=== PATIENT | male | born 1940 | race Two or more races ===

== ENCOUNTER 2022-12-16 13:27 | Emergency (ER) | payer MEDICARE, OTHER ==
[~2022-12-16] VITALS: Ht 170.2 cm; Wt 68.9 kg
[2022-12-16] MEDS ORDERED: LIDOCAINE 1%-EPI 1:100,000 20 ML VIAL ONE (13:48)
[2022-12-16] MEDS ORDERED: LIDOCAINE 1%-EPI 1:100,000 20 ML VIAL TP ONE (14:00)
[2022-12-16] MEDS ORDERED: TDAP [DIPH/PERTUSSIS/TET] 0.5 ML VIAL IM ONE ×2 (14:00→14:17)
[2022-12-16] MEDS ORDERED: IV NS 0.9% 500 ML BAG IV ONE (14:00)
[2022-12-16 14:33] LABS: BASOPHILS % (AUTO) 0.4 % (0.0-2.0); EOSINOPHILS % (AUTO) 10.9 % (0.0-6.0); HEMATOCRIT 34 % (39-51); HEMOGLOBIN 11.2 g/dL (13.5-17.5); LYMPHOCYTES # (AUTO) 1.1 K/uL (0.8-4.8); MEAN CORPUSCULAR HGB CONC 33 g/dl (31.0-36.0); MEAN CORPUSCULAR VOLUME 86 fL (80-96); MONOCYTES # (AUTO) 0.4 K/uL (0.1-1.30); MONOCYTES % (AUTO) 10.4 % (2.0-12.0); NEUTROPHILS # (AUTO) 2.1 K/uL (1.8-8.9); NEUTROPHILS % (AUTO) 51.3 % (43.0-81.0); PLATELET COUNT (AUTO) 175 K/uL (150-450); RED BLOOD CELL COUNT(AUTO) 3.96 MIL/uL (4.5-6.0); WHITE BLOOD COUNT (AUTO) 4.2 K/uL (4.3-11.0)
[2022-12-16 14:51] LABS: CALCIUM, SERUM 8.8 mg/dL (8.5-10.1); CREATININE 0.9 mg/dL (0.6-1.3); POTASSIUM 4.2 mmol/L (3.5-5.1)
[2022-12-16 14:58] LABS: ALBUMIN 3.1 g/dL (3.4-5.0); BILIRUBIN,DIRECT 0.2 mg/dL (0.0-0.2); BILIRUBIN,TOTAL 0.4 mg/dL (0.2-1.0); TOTAL PROTEIN, SERUM 6.4 g/dL (6.4-8.2)
[2022-12-16] MEDS ORDERED: BACI/NEOM/POLY B OINT PKT 1 UDPKT PACKET ONE (16:08)
--- NOTE | 2022-12-16 16:14 | NUR ---
CLEANED WOUND APPLIED TRIPLE ATB WOUND DRESSING DONE
--- NOTE | 2022-12-16 17:45 | NUR ---
Patient discharged to home in stable condition. Written and verbal after care instructions given. Patient verbalizes understanding of instruction.
[2022-12-16 18:07] VITALS: BP 110/78
== END 2022-12-16 17:45 | disposition home or self-care (01) ==
LOC: ER 14:25
DX: S01.112A Laceration without foreign body of left eyelid and periocular area, initial encounter (principal); R51.9 Headache, unspecified; M54.2 Cervicalgia; Z88.2 Allergy status to sulfonamides; W06.XXXA Fall from bed, initial encounter; Y93.89 Activity, other specified; Y92.89 Other specified places as the place of occurrence of the external cause; Y99.8 Other external cause status
CPT/HCPCS: 99285; 72125; 12015; 90471; 90715; 70450; 85025; 80048; 80076; 36415; 85730; J7040; A6403 ×2; J3490

== ENCOUNTER 2023-06-27 16:26 | Inpatient (IN) | payer MEDICARE, OTHER ==
[~2023-06-27] VITALS: Ht 172.7 cm; Wt 68.0 kg
[2023-06-27] MEDS ORDERED: VANCOMYCIN 1 GM in IV D5W 250 ML IV ONE (18:00)
[2023-06-27] MEDS ORDERED: IV NS 0.9% 1,000 ML BAG IV ONE (18:00)
[2023-06-27] MEDS ORDERED: ACETAMINOPHEN 650 MG/SUPP.RECT RC ONE ×2 (18:00→18:12)
[2023-06-27] MEDS ORDERED: CEFEPIME 1 GM in IV D5W 50 ML IV ONE (18:00)
[2023-06-27] MEDS ORDERED: CEFEPIME 1 GM VIAL ONE (18:11)
[2023-06-27] MEDS ORDERED: VANCOMYCIN 1 GM /D5W 250 ML PB IV ONE (18:12)
[2023-06-27 18:15] LABS: BASOPHILS % (AUTO) 0.3 % (0.0-2.0); EOSINOPHILS % (AUTO) 0.2 % (0.0-6.0); HEMATOCRIT 31 % (39-51); LYMPHOCYTES % (AUTO) 18.5 % (20.0-44.0); MEAN CORPUSCULAR HEMOGLOBIN 30 PG (26.0-33.0); MEAN CORPUSCULAR HGB CONC 33 g/dl (31.0-36.0); MEAN CORPUSCULAR VOLUME 92 fL (80-96); MONOCYTES # (AUTO) 0.4 K/uL (0.1-1.30); MONOCYTES % (AUTO) 7.5 % (2.0-12.0); NEUTROPHILS # (AUTO) 3.9 K/uL (1.8-8.9); NEUTROPHILS % (AUTO) 73.5 % (43.0-81.0); PLATELET COUNT (AUTO) 96 K/uL (150-450); RED BLOOD CELL COUNT(AUTO) 3.33 MIL/uL (4.5-6.0); RED CELL DISTRIBUTION WIDTH 18.1 % (11.5-15.0); WHITE BLOOD COUNT (AUTO) 5.2 K/uL (4.3-11.0)
[2023-06-27] MEDS ORDERED: NIFE60TA73 PO (18:15)
[2023-06-27] MEDS ORDERED: MEMA10TA PO (18:15)
[2023-06-27] MEDS ORDERED: ASPI-1420 PO (18:15)
[2023-06-27] MEDS ORDERED: ATOR80TA PO (18:15)
[2023-06-27] MEDS ORDERED: TRAZ-182 PO (18:15)
[2023-06-27] MEDS ORDERED: QUET25TA PO (18:15)
[2023-06-27] MEDS ORDERED: ALLO100T PO (18:15)
[2023-06-27] MEDS ORDERED: DIVA-78 PO (18:15)
[2023-06-27] MEDS ORDERED: MYRBETRIQ PO (18:15)
[2023-06-27] MEDS ORDERED: FINA5TAB11 PO (18:15)
[2023-06-27] MEDS ORDERED: CHOL200059 PO (18:15)
[2023-06-27] MEDS ORDERED: LINA145C PO (18:15)
[2023-06-27] MEDS ORDERED: CARV25TA2 PO (18:15)
[2023-06-27] MEDS ORDERED: SERT50TA PO (18:15)
[2023-06-27] MEDS ORDERED: HYDR100T27 PO (18:15)
[2023-06-27 18:24] LABS: CALCIUM, SERUM 8.9 mg/dL (8.5-10.1); CARBON DIOXIDE 28 mmol/L (21-32); CHLORIDE 100 mmol/L (98-107); CREATININE 1.6 mg/dL (0.6-1.3); GLUCOSE 98 mg/dL (74-106); POTASSIUM 4.6 mmol/L (3.5-5.1); SODIUM SERUM 134 mmol/L (136-145); UREA NITROGEN, BLOOD 28 mg/dL (7-18)
[2023-06-27 18:27] LABS: INR 1.17 (0.91-1.10); PARTIAL THROMBOPLASTIN TIME 28.8 SEC (24.3-34.3); PROTHROMBIN TIME 12.3 SECS (9.2-11.1)
[2023-06-27 18:30] LABS: ALANINE AMINOTRANSFERASE 17 U/L (12-78); ALBUMIN 2.5 g/dL (3.4-5.0); ALKALINE PHOSPHATASE 90 U/L (46-116); ASPARTATE AMINOTRANSFERASE 25 U/L (15-37); BILIRUBIN,DIRECT 0.2 mg/dL (0.0-0.2); BILIRUBIN,TOTAL 0.7 mg/dL (0.2-1.0); TOTAL PROTEIN, SERUM 6.3 g/dL (6.4-8.2)
[2023-06-27 18:37] LABS: LACTIC ACID 1.9 mmol/L (0.4-2.0)
[2023-06-27 18:42] LABS: BAND % (MANUAL) 2 % (0.0-5.0); LYMPHOCYTES % (MANUAL) 16 % (16-48); MONOCYTES % (MANUAL) 5 % (0-11.0); NEUTROPHILS % (MANUAL) 77 (42-76); PLATELET ESTIMATE DECREASED
[2023-06-27 19:40] LABS: APPEARANCE,URINE CLOUDY (CLEAR); BILIRUBIN,URINE NEGATIVE (NEGATIVE); BLOOD, URINE 1+ Ery/uL (NEGATIVE); COLOR,URINE YELLOW (YELLOW); KETONES,URINE TRACE mg/dL (NEGATIVE); LEUKOCYTE ESTERASE ,URINE 2+ (NEGATIVE); NITRITE, URINE POSITIVE (NEGATIVE); PH,URINE 6.5 (5.0-8.0); PROTEIN,URINE TRACE mg/dl (NEGATIVE); UGLUCOSE NEGATIVE (NEGATIVE); UROBILINOGEN,URINE 0.2 EU/dL (0.2)
[2023-06-27] MEDS ORDERED: ACETAMINOPHEN 650 MG/SUPP.RECT RC PRN (20:00)
[2023-06-27] MEDS ORDERED: Z GUARD REMEDY 4 OZ OINT TP PRN (20:00)
[2023-06-27] MEDS ORDERED: ONDANSETRON HCL/PF 4 MG/2 ML VIAL IVP PRN (20:00)
[2023-06-27 20:11] LABS: ADD URINE CULTURE YES; BACTERIA,URINE 4+ /HPF (None Seen); MUCUS,URINE Few /LPF (None Seen)
[2023-06-27] MEDS ORDERED: LINZESS 145 MCG XX SCH (20:30)
[2023-06-27] MEDS ORDERED: TRAZODONE 50 MG TABLET PO PRN (20:30)
[2023-06-27 21:30] VITALS: BP 134/81; TEMP 99.5; O2SAT 98
[2023-06-27] MEDS: ATORVASTATIN 40 MG TABLET PO SCH (22:01)
[2023-06-27] MEDS: IV D5/0.45 NACL 1,000 ML IV PRN (22:06)
[2023-06-28] VITALS: BP 146/57; TEMP 97.5; O2SAT 96
[2023-06-28 04:00] VITALS: BP 138/60; TEMP 97.7; O2SAT 100
[2023-06-28 07:03] LABS: BASOPHILS % (AUTO) 0.3 % (0.0-2.0); EOSINOPHILS # (AUTO) 0.1 K/uL (0.0-0.7); EOSINOPHILS % (AUTO) 1.1 % (0.0-6.0); HEMATOCRIT 28 % (39-51); HEMOGLOBIN 9.2 g/dL (13.5-17.5); LYMPHOCYTES # (AUTO) 1.1 K/uL (0.8-4.8); LYMPHOCYTES % (AUTO) 20.1 % (20.0-44.0); MEAN CORPUSCULAR HEMOGLOBIN 30 PG (26.0-33.0); MEAN CORPUSCULAR HGB CONC 33 g/dl (31.0-36.0); MEAN CORPUSCULAR VOLUME 92 fL (80-96); MONOCYTES # (AUTO) 0.5 K/uL (0.1-1.30); MONOCYTES % (AUTO) 8.5 % (2.0-12.0); NEUTROPHILS # (AUTO) 3.8 K/uL (1.8-8.9); PLATELET COUNT (AUTO) 82 K/uL (150-450); RED BLOOD CELL COUNT(AUTO) 3.04 MIL/uL (4.5-6.0); WHITE BLOOD COUNT (AUTO) 5.4 K/uL (4.3-11.0)
[2023-06-28 07:18] LABS: CALCIUM, SERUM 8.5 mg/dL (8.5-10.1); MAGNESIUM 2.2 mg/dL (1.8-2.4); PHOSPHORUS 3.1 mg/dL (2.5-4.9); POTASSIUM 4.1 mmol/L (3.5-5.1)
[2023-06-28 07:34] LABS: THYROID STIMULATING HORMONE 1.524 uIU/mL (0.358-3.74)
[2023-06-28 08:00] VITALS: BP 153/59; TEMP 97.3; O2SAT 98
[2023-06-28] MEDS: CARVEDILOL 12.5 MG TABLET PO SCH ×2 (09:00→16:49)
[2023-06-28] MEDS ORDERED: NA PHOS,M-B/NA PHOS,DI-BA 1 EA ENEMA RC PRN (09:00)
[2023-06-28] MEDS ORDERED: ASPIRIN EC 81 MG TABLET.DR PO SCH (09:00)
[2023-06-28] MEDS ORDERED: PANTOPRAZOLE 40 MG VIAL IV SCH (09:00)
[2023-06-28] MEDS: DIVALPROEX SODIUM 500 MG TABLET.DR PO SCH (09:25)
[2023-06-28] MEDS: SERTRALINE HCL 50 MG TABLET PO SCH (09:25)
[2023-06-28] MEDS: ALLOPURINOL 100 MG TABLET PO SCH ×2 (09:25→17:13)
[2023-06-28] MEDS: FINASTERIDE (5 MG) 5 MG TABLET PO SCH (09:25)
[2023-06-28] MEDS: CHOLECALCIFEROL 1,000 UNIT TABLET (VIT D3) PO SCH (09:25)
[2023-06-28] MEDS: MEMANTINE HCL 5 MG TABLET PO SCH (09:25)
[2023-06-28] MEDS: CEFEPIME 1 GM in IV D5W 50 ML IV SCH ×2 (09:25→20:58)
[2023-06-28] MEDS: QUETIAPINE FUMARATE 25 MG TABLET PO SCH (09:25)
[2023-06-28 12:00] VITALS: BP 163/60; TEMP 97.4; O2SAT 99
[2023-06-28] MEDS: VANCOMYCIN 0.75 GM in IV D5W 250 ML IV SCH ×2 (12:24→23:23)
[2023-06-28 13:35] LABS: ANISOCYTOSIS 1+; BASOPHILS % (MANUAL) 0 % (0.0-2.0); EOSINOPHILS % (MANUAL) 6 % (0-4); LYMPHOCYTES % (MANUAL) 18 % (16-48); MONOCYTES % (MANUAL) 5 % (0-11.0); NEUTROPHILS % (MANUAL) 71 (42-76); OVALOCYTES FEW; PLATELET ESTIMATE DECREASED
[2023-06-28] MEDS: IV D5/0.45 NACL 1,000 ML IV PRN (15:07)
[2023-06-28 16:00] VITALS: BP 166/59; TEMP 97.3; O2SAT 99
[2023-06-28] MEDS ORDERED: VANCOMYCIN 1 GM in IV D5W 250ml IV SCH (18:00)
[2023-06-28] MEDS: IV LR 1000 ML 1,000 ML IV PRN (18:16)
[2023-06-28 20:00] VITALS: BP 164/67; TEMP 95; O2SAT 98
[2023-06-28] MEDS ORDERED: HEPARIN SODIUM, PORCINE 5000 UNITS/1 ML VIAL SQ SCH (21:00)
[2023-06-28] MEDS: ATORVASTATIN 40 MG TABLET PO SCH (21:04)
[2023-06-28] MEDS: PANTOPRAZOLE 40 MG VIAL IV SCH (21:04)
[2023-06-28] MEDS: hydrALAZINE HCL IV 20 MG VIAL IV PRN (22:17)
[2023-06-29] VITALS: BP 149/60; TEMP 95; O2SAT 98
[2023-06-29 04:00] VITALS: BP 155/79; TEMP 96.5; O2SAT 100
[2023-06-29 08:00] VITALS: BP 178/67; TEMP 97.3; O2SAT 97
[2023-06-29] MEDS: NIFEdipine XL (30MG) 30 MG TAB PO SCH (09:00)
[2023-06-29] MEDS: QUETIAPINE FUMARATE 25 MG TABLET PO SCH ×2 (09:00→09:13)
[2023-06-29] MEDS: CARVEDILOL 12.5 MG TABLET PO SCH ×2 (09:00→16:34)
[2023-06-29 09:03] LABS: BASOPHILS % (AUTO) 0.3 % (0.0-2.0); EOSINOPHILS # (AUTO) 0.1 K/uL (0.0-0.7); EOSINOPHILS % (AUTO) 2.5 % (0.0-6.0); HEMATOCRIT 27 % (39-51); HEMOGLOBIN 9.1 g/dL (13.5-17.5); LYMPHOCYTES # (AUTO) 0.6 K/uL (0.8-4.8); LYMPHOCYTES % (AUTO) 17.1 % (20.0-44.0); MEAN CORPUSCULAR HEMOGLOBIN 30 PG (26.0-33.0); MEAN CORPUSCULAR HGB CONC 33 g/dl (31.0-36.0); MEAN CORPUSCULAR VOLUME 91 fL (80-96); MONOCYTES # (AUTO) 0.3 K/uL (0.1-1.30); MONOCYTES % (AUTO) 8.8 % (2.0-12.0); NEUTROPHILS # (AUTO) 2.7 K/uL (1.8-8.9); NEUTROPHILS % (AUTO) 71.3 % (43.0-81.0); PLATELET COUNT (AUTO) 94 K/uL (150-450); RED BLOOD CELL COUNT(AUTO) 3.01 MIL/uL (4.5-6.0); RED CELL DISTRIBUTION WIDTH 18.3 % (11.5-15.0); WHITE BLOOD COUNT (AUTO) 3.7 K/uL (4.3-11.0)
[2023-06-29] MEDS: DIVALPROEX SODIUM 500 MG TABLET.DR PO SCH ×2 (09:12→09:52)
[2023-06-29] MEDS: CEFEPIME 1 GM in IV D5W 50 ML IV SCH ×2 (09:12→20:45)
[2023-06-29] MEDS: SERTRALINE HCL 50 MG TABLET PO SCH ×2 (09:13→09:52)
[2023-06-29] MEDS: FINASTERIDE (5 MG) 5 MG TABLET PO SCH ×2 (09:13→09:52)
[2023-06-29] MEDS: CHOLECALCIFEROL 1,000 UNIT TABLET (VIT D3) PO SCH ×2 (09:13→09:52)
[2023-06-29] MEDS: ALLOPURINOL 100 MG TABLET PO SCH ×3 (09:13→17:19)
[2023-06-29] MEDS: MEMANTINE HCL 5 MG TABLET PO SCH ×2 (09:13→09:52)
[2023-06-29 09:18] LABS: CALCIUM, SERUM 8.5 mg/dL (8.5-10.1); CARBON DIOXIDE 25 mmol/L (21-32); CHLORIDE 104 mmol/L (98-107); CREATININE 0.7 mg/dL (0.6-1.3); GLUCOSE 103 mg/dL (74-106); POTASSIUM 3.5 mmol/L (3.5-5.1); SODIUM SERUM 136 mmol/L (136-145); UREA NITROGEN, BLOOD 9 mg/dL (7-18)
[2023-06-29 09:23] LABS: IRON, SERUM 23 ug/dl (50-175); TOTAL IRON BINDING CAPACITY 119 ug/dl (250-450)
[2023-06-29] MEDS: PANTOPRAZOLE 40 MG VIAL IV SCH ×2 (09:29→20:45)
[2023-06-29] MEDS: IV LR 1000 ML 1,000 ML IV PRN (09:34)
[2023-06-29 10:02] LABS: FERRITIN 353 ng/mL (8-388); THYROID STIMULATING HORMONE 1.652 uIU/mL (0.358-3.74)
[2023-06-29 10:07] LABS: MAGNESIUM 1.6 mg/dL (1.8-2.4); PHOSPHORUS 2.7 mg/dL (2.5-4.9)
[2023-06-29] MEDS: hydrALAZINE HCL IV 20 MG VIAL IV PRN ×2 (10:55→20:45)
[2023-06-29 12:00] VITALS: BP 154/59; TEMP 97.3; O2SAT 100
[2023-06-29] MEDS ORDERED: MAGNESIUM OXIDE 400 MG TABLET PO ONE (12:00)
[2023-06-29] MEDS: VANCOMYCIN 0.75 GM in IV D5W 250 ML IV SCH ×2 (12:11→23:19)
[2023-06-29 14:13] LABS: ANISOCYTOSIS 1+; OVALOCYTES 1+; PLATELET ESTIMATE DECRE
[2023-06-29 16:00] VITALS: BP 145/59; TEMP 97; O2SAT 100
[2023-06-29 20:00] VITALS: BP 167/61; TEMP 97.5; O2SAT 99
[2023-06-29] MEDS: DOCUSATE SODIUM 100 MG CAPSULE PO SCH (20:00)
[2023-06-29] MEDS ORDERED: POLYETHYLENE GLYCOL 3350 17 GM POWD.PACK PO PRN (20:00)
[2023-06-29] MEDS: ATORVASTATIN 40 MG TABLET PO SCH (21:13)
[2023-06-30] VITALS: BP 109/53; TEMP 97.4; O2SAT 96
[2023-06-30 04:00] VITALS: BP 120/51; TEMP 97.3; O2SAT 97
[2023-06-30 07:13] LABS: BASOPHILS # (AUTO) 0.1 K/uL (0.0-0.2); BASOPHILS % (AUTO) 2.7 % (0.0-2.0); EOSINOPHILS # (AUTO) 0.1 K/uL (0.0-0.7); EOSINOPHILS % (AUTO) 3.4 % (0.0-6.0); HEMATOCRIT 26 % (39-51); HEMOGLOBIN 8.7 g/dL (13.5-17.5); LYMPHOCYTES # (AUTO) 0.8 K/uL (0.8-4.8); LYMPHOCYTES % (AUTO) 20.8 % (20.0-44.0); MEAN CORPUSCULAR HEMOGLOBIN 30 PG (26.0-33.0); MEAN CORPUSCULAR HGB CONC 33 g/dl (31.0-36.0); MEAN CORPUSCULAR VOLUME 90 fL (80-96); MONOCYTES # (AUTO) 0.3 K/uL (0.1-1.30); MONOCYTES % (AUTO) 8.8 % (2.0-12.0); NEUTROPHILS # (AUTO) 2.5 K/uL (1.8-8.9); NEUTROPHILS % (AUTO) 64.3 % (43.0-81.0); PLATELET COUNT (AUTO) 113 K/uL (150-450); RED BLOOD CELL COUNT(AUTO) 2.87 MIL/uL (4.5-6.0); RED CELL DISTRIBUTION WIDTH 17.9 % (11.5-15.0); WHITE BLOOD COUNT (AUTO) 3.8 K/uL (4.3-11.0)
[2023-06-30 07:37] LABS: CREATININE 0.7 mg/dL (0.6-1.3); MAGNESIUM 1.6 mg/dL (1.8-2.4); PHOSPHORUS 2.8 mg/dL (2.5-4.9); POTASSIUM 4.1 mmol/L (3.5-5.1)
[2023-06-30 08:00] VITALS: BP 111/68; TEMP 97.7; O2SAT 97
[2023-06-30] MEDS: QUETIAPINE FUMARATE 25 MG TABLET PO SCH (08:13)
[2023-06-30] MEDS: ALLOPURINOL 100 MG TABLET PO SCH ×2 (08:13→16:45)
[2023-06-30] MEDS: CHOLECALCIFEROL 1,000 UNIT TABLET (VIT D3) PO SCH (08:14)
[2023-06-30] MEDS: SERTRALINE HCL 50 MG TABLET PO SCH (08:14)
[2023-06-30] MEDS: MEMANTINE HCL 5 MG TABLET PO SCH (08:14)
[2023-06-30] MEDS: DOCUSATE SODIUM 100 MG CAPSULE PO SCH ×2 (08:14→16:45)
[2023-06-30] MEDS: DIVALPROEX SODIUM 500 MG TABLET.DR PO SCH (08:14)
[2023-06-30] MEDS: CEFEPIME 1 GM in IV D5W 50 ML IV SCH ×2 (08:14→20:31)
[2023-06-30] MEDS: PANTOPRAZOLE 40 MG VIAL IV SCH (08:14)
[2023-06-30] MEDS: FINASTERIDE (5 MG) 5 MG TABLET PO SCH (08:14)
[2023-06-30] MEDS: NIFEdipine XL (30MG) 30 MG TAB PO SCH (08:15)
[2023-06-30] MEDS: CARVEDILOL 12.5 MG TABLET PO SCH ×2 (08:15→16:43)
[2023-06-30] MEDS: Magnesium 1GM/D5W 100ML PREMIX 100 ML IV SCH ×2 (11:13→12:13)
[2023-06-30 12:00] VITALS: BP 115/65; TEMP 97.9; O2SAT 97
[2023-06-30] MEDS ORDERED: CLINDAMYCIN IV RTU IN D5W 50 ML ONE (14:41)
[2023-06-30 16:00] VITALS: BP 109/54; TEMP 97.3; O2SAT 97
[2023-06-30] MEDS ORDERED: JEVITY 1.2 CAL 1,000 ML BOTTLE GT SCH (16:00)
[2023-06-30] MEDS: ARGININE/GLUTAMINE/CALCIUM BMB 1 EACH POWD.PACK PEG SCH ×2 (19:30→20:38)
[2023-06-30 20:00] VITALS: BP 120/59; TEMP 97.9; O2SAT 99
[2023-06-30] MEDS: ATORVASTATIN 40 MG TABLET PO SCH (22:00)
[2023-07-01] VITALS: BP 144/59; TEMP 97.9; O2SAT 99
[2023-07-01] MEDS ORDERED: VANCOMYCIN 1.25 GM in IV D5W 250 ML IV SCH ×2
[2023-07-01] MEDS: PANTOPRAZOLE 40 MG VIAL IV SCH ×3 (00:44→21:37)
[2023-07-01 04:00] VITALS: BP 139/56; TEMP 97.9; O2SAT 99
[2023-07-01 06:38] LABS: BASOPHILS % (AUTO) 0.3 % (0.0-2.0); EOSINOPHILS # (AUTO) 0.2 K/uL (0.0-0.7); EOSINOPHILS % (AUTO) 3.1 % (0.0-6.0); HEMATOCRIT 26 % (39-51); HEMOGLOBIN 8.5 g/dL (13.5-17.5); LYMPHOCYTES # (AUTO) 0.6 K/uL (0.8-4.8); LYMPHOCYTES % (AUTO) 12.4 % (20.0-44.0); MEAN CORPUSCULAR HEMOGLOBIN 30 PG (26.0-33.0); MEAN CORPUSCULAR HGB CONC 34 g/dl (31.0-36.0); MEAN CORPUSCULAR VOLUME 91 fL (80-96); MONOCYTES # (AUTO) 0.4 K/uL (0.1-1.30); MONOCYTES % (AUTO) 7.4 % (2.0-12.0); NEUTROPHILS # (AUTO) 3.8 K/uL (1.8-8.9); NEUTROPHILS % (AUTO) 76.8 % (43.0-81.0); PLATELET COUNT (AUTO) 129 K/uL (150-450); RED BLOOD CELL COUNT(AUTO) 2.81 MIL/uL (4.5-6.0); RED CELL DISTRIBUTION WIDTH 17.9 % (11.5-15.0); WHITE BLOOD COUNT (AUTO) 4.9 K/uL (4.3-11.0)
[2023-07-01 07:06] LABS: CALCIUM, SERUM 8.2 mg/dL (8.5-10.1); CREATININE 0.7 mg/dL (0.6-1.3); MAGNESIUM 1.9 mg/dL (1.8-2.4)
[2023-07-01 08:00] VITALS: BP 157/59; TEMP 97.3; O2SAT 97
[2023-07-01] MEDS: CARVEDILOL 12.5 MG TABLET PO SCH ×2 (09:00→17:00)
[2023-07-01] MEDS: MEMANTINE HCL 5 MG TABLET PO SCH (09:28)
[2023-07-01] MEDS: QUETIAPINE FUMARATE 25 MG TABLET PO SCH (09:28)
[2023-07-01] MEDS: DOCUSATE SODIUM 100 MG CAPSULE PO SCH ×2 (09:28→17:39)
[2023-07-01] MEDS: ALLOPURINOL 100 MG TABLET PO SCH ×2 (09:28→17:39)
[2023-07-01] MEDS: NIFEdipine XL (30MG) 30 MG TAB PO SCH (09:29)
[2023-07-01] MEDS: CHOLECALCIFEROL 1,000 UNIT TABLET (VIT D3) PO SCH (09:30)
[2023-07-01] MEDS: FINASTERIDE (5 MG) 5 MG TABLET PO SCH (09:30)
[2023-07-01] MEDS: SERTRALINE HCL 50 MG TABLET PO SCH (09:30)
[2023-07-01] MEDS: CEFEPIME 1 GM in IV D5W 50 ML IV SCH ×2 (09:31→21:36)
[2023-07-01] MEDS: ARGININE/GLUTAMINE/CALCIUM BMB 1 EACH POWD.PACK PEG SCH ×2 (09:31→21:37)
[2023-07-01] MEDS: DIVALPROEX SODIUM 500 MG TABLET.DR PO SCH (09:31)
[2023-07-01] MEDS: JEVITY 1.2 CAL 1,000 ML BOTTLE GT SCH (09:36)
[2023-07-01] MEDS: Magnesium 1GM/D5W 100ML PREMIX 100 ML IV SCH ×2 (11:11→13:55)
[2023-07-01 12:00] VITALS: BP 84/36; TEMP 97.8; O2SAT 97
[2023-07-01] MEDS ORDERED: ALBUMIN 25% 12.5 GM/50 ML BOTTLE IV ONE (12:30)
[2023-07-01] MEDS ORDERED: ALBUMIN 25% 12.5 GM in PREMIX 1 EA IV ONE (13:00)
[2023-07-01 16:00] VITALS: BP 119/57; TEMP 97.6; O2SAT 97
[2023-07-01 20:00] VITALS: BP 119/65; TEMP 97; O2SAT 95
[2023-07-01] MEDS: ATORVASTATIN 40 MG TABLET PO SCH (21:37)
[2023-07-02] VITALS: BP 133/56; TEMP 97.2; O2SAT 99
[2023-07-02 04:00] VITALS: BP 130/51; TEMP 97.9; O2SAT 94
[2023-07-02 05:45] LABS: BASOPHILS % (AUTO) 0.1 % (0.0-2.0); EOSINOPHILS # (AUTO) 0.1 K/uL (0.0-0.7); EOSINOPHILS % (AUTO) 1.9 % (0.0-6.0); HEMATOCRIT 25 % (39-51); HEMOGLOBIN 8.5 g/dL (13.5-17.5); LYMPHOCYTES # (AUTO) 0.9 K/uL (0.8-4.8); LYMPHOCYTES % (AUTO) 17.5 % (20.0-44.0); MEAN CORPUSCULAR HEMOGLOBIN 30 PG (26.0-33.0); MEAN CORPUSCULAR HGB CONC 34 g/dl (31.0-36.0); MEAN CORPUSCULAR VOLUME 90 fL (80-96); MONOCYTES # (AUTO) 0.4 K/uL (0.1-1.30); MONOCYTES % (AUTO) 8.6 % (2.0-12.0); NEUTROPHILS # (AUTO) 3.6 K/uL (1.8-8.9); NEUTROPHILS % (AUTO) 71.9 % (43.0-81.0); PLATELET COUNT (AUTO) 154 K/uL (150-450); RED BLOOD CELL COUNT(AUTO) 2.78 MIL/uL (4.5-6.0); RED CELL DISTRIBUTION WIDTH 18.1 % (11.5-15.0); WHITE BLOOD COUNT (AUTO) 5.1 K/uL (4.3-11.0)
[2023-07-02 06:31] LABS: CALCIUM, SERUM 8.5 mg/dL (8.5-10.1); CARBON DIOXIDE 25 mmol/L (21-32); CHLORIDE 99 mmol/L (98-107); CREATININE 0.9 mg/dL (0.6-1.3); GLUCOSE 98 mg/dL (74-106); MAGNESIUM 2.2 mg/dL (1.8-2.4); POTASSIUM 4.6 mmol/L (3.5-5.1); SODIUM SERUM 130 mmol/L (136-145); UREA NITROGEN, BLOOD 21 mg/dL (7-18)
[2023-07-02 08:00] VITALS: BP 121/55; TEMP 97.9; O2SAT 93
[2023-07-02] MEDS: CEFEPIME 1 GM in IV D5W 50 ML IV SCH ×2 (08:00→21:16)
[2023-07-02] MEDS: FINASTERIDE (5 MG) 5 MG TABLET PO SCH (08:05)
[2023-07-02] MEDS: PANTOPRAZOLE 40 MG VIAL IV SCH ×3 (08:05→21:16)
[2023-07-02] MEDS: MEMANTINE HCL 5 MG TABLET PO SCH (08:06)
[2023-07-02] MEDS: ALLOPURINOL 100 MG TABLET PO SCH ×2 (08:06→16:50)
[2023-07-02] MEDS: DOCUSATE SODIUM 100 MG CAPSULE PO SCH ×2 (08:06→16:50)
[2023-07-02] MEDS: CARVEDILOL 12.5 MG TABLET PO SCH ×3 (08:06→16:50)
[2023-07-02] MEDS: NIFEdipine XL (30MG) 30 MG TAB PO SCH ×2 (08:06→08:13)
[2023-07-02] MEDS: DIVALPROEX SODIUM 500 MG TABLET.DR PO SCH (08:06)
[2023-07-02] MEDS: ASPIRIN 81 MG TAB.CHEW PO SCH (08:06)
[2023-07-02] MEDS: ARGININE/GLUTAMINE/CALCIUM BMB 1 EACH POWD.PACK PEG SCH (08:06)
[2023-07-02] MEDS: CHOLECALCIFEROL 1,000 UNIT TABLET (VIT D3) PO SCH (08:06)
[2023-07-02] MEDS: SERTRALINE HCL 50 MG TABLET PO SCH (08:13)
[2023-07-02] MEDS: QUETIAPINE FUMARATE 25 MG TABLET PO SCH (08:13)
[2023-07-02 09:31] LABS: ABG BASE EXCESS 0.6 mmol/L; ABG OXYGEN SATURATION 82.2 % (92.0-98.5); ABG PCO2 35.4 mmHg (35.0-45.0); ABG PH 7.454 (7.350-7.450); ABG PO2 46.8 mmHg (75.0-100.0); ABG TOTAL HEMOGLOBIN 9.7 G/dL (13.5-18.0); AaDO2 168.8 mmHg; COHb 0.3 % (0.5-1.5); MetHb 0.2 % (0.0-1.5); O2Hb 81.8 % (94.0-97.0); SITE, ABG Left Radial
[2023-07-02 12:00] VITALS: BP 137/60; TEMP 97.7; O2SAT 97
[2023-07-02 16:00] VITALS: BP 140/64; TEMP 98.7; O2SAT 99
[2023-07-02] MEDS: JEVITY 1.2 CAL 1,000 ML BOTTLE GT SCH (19:06)
[2023-07-02 20:00] VITALS: BP 144/70; TEMP 99.1; O2SAT 95
[2023-07-02] MEDS: ATORVASTATIN 40 MG TABLET PO SCH (21:16)
[2023-07-03] VITALS (8 sets, daily range): BP systolic 121–161; BP diastolic 55–73; TEMP 97.9–99.3; O2SAT 96–100
[2023-07-03] MEDS: JEVITY 1.2 CAL 1,000 ML BOTTLE GT SCH (05:41)
[2023-07-03 06:46] LABS: BASOPHILS % (AUTO) 0.1 % (0.0-2.0); EOSINOPHILS # (AUTO) 0.1 K/uL (0.0-0.7); EOSINOPHILS % (AUTO) 1.8 % (0.0-6.0); HEMATOCRIT 25 % (39-51); HEMOGLOBIN 8.3 g/dL (13.5-17.5); LYMPHOCYTES # (AUTO) 0.9 K/uL (0.8-4.8); MEAN CORPUSCULAR HEMOGLOBIN 30 PG (26.0-33.0); MEAN CORPUSCULAR HGB CONC 34 g/dl (31.0-36.0); MEAN CORPUSCULAR VOLUME 90 fL (80-96); MONOCYTES # (AUTO) 0.4 K/uL (0.1-1.30); MONOCYTES % (AUTO) 10.3 % (2.0-12.0); NEUTROPHILS # (AUTO) 2.9 K/uL (1.8-8.9); NEUTROPHILS % (AUTO) 67.8 % (43.0-81.0); PLATELET COUNT (AUTO) 184 K/uL (150-450); RED BLOOD CELL COUNT(AUTO) 2.74 MIL/uL (4.5-6.0); RED CELL DISTRIBUTION WIDTH 18.2 % (11.5-15.0); WHITE BLOOD COUNT (AUTO) 4.3 K/uL (4.3-11.0)
[2023-07-03 07:03] LABS: CALCIUM, SERUM 7.7 mg/dL (8.5-10.1); CREATININE 0.9 mg/dL (0.6-1.3); MAGNESIUM 1.9 mg/dL (1.8-2.4); PHOSPHORUS 3.1 mg/dL (2.5-4.9); POTASSIUM 4.5 mmol/L (3.5-5.1)
[2023-07-03] MEDS: NIFEdipine XL (30MG) 30 MG TAB PO SCH (08:08)
[2023-07-03] MEDS: ASPIRIN 81 MG TAB.CHEW PO SCH (08:08)
[2023-07-03] MEDS: FINASTERIDE (5 MG) 5 MG TABLET PO SCH (08:08)
[2023-07-03] MEDS: ALLOPURINOL 100 MG TABLET PO SCH ×2 (08:08→17:04)
[2023-07-03] MEDS: CARVEDILOL 12.5 MG TABLET PO SCH ×2 (08:09→17:06)
[2023-07-03] MEDS: DOCUSATE SODIUM 100 MG CAPSULE PO SCH ×2 (08:09→17:04)
[2023-07-03] MEDS: DIVALPROEX SODIUM 500 MG TABLET.DR PO SCH (08:09)
[2023-07-03] MEDS: MEMANTINE HCL 5 MG TABLET PO SCH (08:09)
[2023-07-03] MEDS: CHOLECALCIFEROL 1,000 UNIT TABLET (VIT D3) PO SCH (08:09)
[2023-07-03] MEDS: PANTOPRAZOLE 40 MG VIAL IV SCH (08:10)
[2023-07-03] MEDS: CEFEPIME 1 GM in IV D5W 50 ML IV SCH ×2 (08:11→21:06)
[2023-07-03] MEDS: QUETIAPINE FUMARATE 25 MG TABLET PO SCH (08:33)
[2023-07-03] MEDS: SERTRALINE HCL 50 MG TABLET PO SCH (08:33)
[2023-07-03 08:53] LABS: ANISOCYTOSIS 1+; EOSINOPHILS % (MANUAL) 1 % (0-4); LYMPHOCYTES % (MANUAL) 29 % (16-48); MONOCYTES % (MANUAL) 7 % (0-11.0); MYELOCYTES % 1 % (0-0); NEUTROPHILS % (MANUAL) 62 (42-76); OVALOCYTES 1+; PLATELET ESTIMATE ADEQUATE; TARGET CELLS 1+
[2023-07-03] MEDS ORDERED: PANTOPRAZOLE 40 MG/PACK PACK PO SCH (09:00)
[2023-07-03] MEDS: PANTOPRAZOLE 40 MG/PACK PACK GT SCH ×2 (09:36→21:10)
[2023-07-03] MEDS: IPRATROPIUM NEB FS 0.5 MG/2.5 ML AMPUL.NEB NEB SCH (20:12)
[2023-07-03] MEDS: ALBUTEROL FS 2.5 MG/0.5 ML VIAL.NEB NEB SCH (20:12)
[2023-07-03] MEDS: ATORVASTATIN 40 MG TABLET PO SCH (21:10)
[2023-07-04] VITALS (14 sets, daily range): BP systolic 138–167; BP diastolic 44–58; TEMP 98.1–99.1; O2SAT 93–100
[2023-07-04] MEDS: IPRATROPIUM NEB FS 0.5 MG/2.5 ML AMPUL.NEB NEB SCH ×4 (01:16→20:43)
[2023-07-04] MEDS: ALBUTEROL FS 2.5 MG/0.5 ML VIAL.NEB NEB SCH ×4 (01:16→20:43)
[2023-07-04] MEDS: CEFEPIME 1 GM in IV D5W 50 ML IV SCH ×2 (08:17→20:07)
[2023-07-04] MEDS: CHOLECALCIFEROL 1,000 UNIT TABLET (VIT D3) PO SCH (08:17)
[2023-07-04] MEDS: ASPIRIN 81 MG TAB.CHEW PO SCH (08:17)
[2023-07-04] MEDS: PANTOPRAZOLE 40 MG/PACK PACK GT SCH ×2 (08:17→21:05)
[2023-07-04] MEDS: FINASTERIDE (5 MG) 5 MG TABLET PO SCH (08:17)
[2023-07-04] MEDS: MEMANTINE HCL 5 MG TABLET PO SCH (08:17)
[2023-07-04] MEDS: DOCUSATE SODIUM 100 MG CAPSULE PO SCH ×2 (08:18→16:17)
[2023-07-04] MEDS: DIVALPROEX SODIUM 500 MG TABLET.DR PO SCH (08:18)
[2023-07-04] MEDS: CARVEDILOL 12.5 MG TABLET PO SCH ×2 (08:19→16:17)
[2023-07-04] MEDS: SERTRALINE HCL 50 MG TABLET PO SCH (08:20)
[2023-07-04] MEDS: QUETIAPINE FUMARATE 25 MG TABLET PO SCH (08:20)
[2023-07-04] MEDS: ALLOPURINOL 100 MG TABLET PO SCH ×2 (08:22→16:17)
[2023-07-04] MEDS: NIFEdipine XL (30MG) 30 MG TAB PO SCH (08:57)
[2023-07-04] MEDS: NIFEdipine (10MG) 10 MG CAPSULE PO SCH ×3 (10:32→21:05)
[2023-07-04] MEDS: JEVITY 1.2 CAL 1,000 ML BOTTLE GT SCH (18:08)
[2023-07-04] MEDS: ATORVASTATIN 40 MG TABLET PO SCH (21:05)
[2023-07-05] VITALS (14 sets, daily range): BP systolic 147–168; BP diastolic 45–59; TEMP 97.5–98.4; O2SAT 92–100
[2023-07-05] MEDS: ALBUTEROL FS 2.5 MG/0.5 ML VIAL.NEB NEB SCH ×4 (01:54→19:34)
[2023-07-05] MEDS: IPRATROPIUM NEB FS 0.5 MG/2.5 ML AMPUL.NEB NEB SCH ×4 (01:54→19:34)
[2023-07-05] MEDS: NIFEdipine (10MG) 10 MG CAPSULE PO SCH ×3 (04:19→21:25)
[2023-07-05] MEDS: FINASTERIDE (5 MG) 5 MG TABLET PO SCH (08:52)
[2023-07-05] MEDS: CHOLECALCIFEROL 1,000 UNIT TABLET (VIT D3) PO SCH (08:52)
[2023-07-05] MEDS: MEMANTINE HCL 5 MG TABLET PO SCH (08:52)
[2023-07-05] MEDS: ALLOPURINOL 100 MG TABLET PO SCH ×2 (08:53→17:12)
[2023-07-05] MEDS: DOCUSATE SODIUM 100 MG CAPSULE PO SCH ×2 (08:53→17:12)
[2023-07-05] MEDS: ASPIRIN 81 MG TAB.CHEW PO SCH (08:53)
[2023-07-05] MEDS: PANTOPRAZOLE 40 MG/PACK PACK GT SCH ×2 (08:53→21:23)
[2023-07-05] MEDS: DIVALPROEX SODIUM 500 MG TABLET.DR PO SCH (08:53)
[2023-07-05] MEDS: CARVEDILOL 12.5 MG TABLET PO SCH ×2 (08:53→17:12)
[2023-07-05] MEDS: CEFEPIME 1 GM in IV D5W 50 ML IV SCH (08:55)
[2023-07-05 08:56] LABS: ALBUMIN 1.8 g/dL (3.4-5.0); BILIRUBIN,DIRECT 0.1 mg/dL (0.0-0.2); BILIRUBIN,TOTAL 0.4 mg/dL (0.2-1.0); TOTAL PROTEIN, SERUM 5.2 g/dL (6.4-8.2)
[2023-07-05] MEDS: ARGININE/GLUTAMINE/CALCIUM BMB 1 EACH POWD.PACK GT SCH (17:12)
[2023-07-05] MEDS: PROSOURCE / PROSTAT (PYXIS) 30 ML UDC GT SCH (17:12)
[2023-07-05] MEDS: JEVITY 1.2 CAL 1,000 ML BOTTLE GT SCH (18:52)
[2023-07-05] MEDS: ATORVASTATIN 40 MG TABLET PO SCH (21:23)
[2023-07-06] VITALS (13 sets, daily range): BP systolic 130–161; BP diastolic 45–58; TEMP 97.3–98.2; O2SAT 95–100
[2023-07-06] MEDS: IPRATROPIUM NEB FS 0.5 MG/2.5 ML AMPUL.NEB NEB SCH ×4 (02:17→20:12)
[2023-07-06] MEDS: ALBUTEROL FS 2.5 MG/0.5 ML VIAL.NEB NEB SCH ×4 (02:17→20:12)
[2023-07-06] MEDS: NIFEdipine (10MG) 10 MG CAPSULE PO SCH ×3 (05:00→21:02)
[2023-07-06] MEDS: DOCUSATE SODIUM 100 MG CAPSULE PO SCH ×2 (09:07→17:50)
[2023-07-06] MEDS: DIVALPROEX SODIUM 500 MG TABLET.DR PO SCH (09:07)
[2023-07-06] MEDS: ZINC SULFATE 220 MG CAPSULE GT SCH (09:07)
[2023-07-06] MEDS: MEMANTINE HCL 5 MG TABLET PO SCH (09:07)
[2023-07-06] MEDS: PANTOPRAZOLE 40 MG/PACK PACK GT SCH ×2 (09:07→21:01)
[2023-07-06] MEDS: ASCORBIC ACID 500 MG TABLET GT SCH (09:07)
[2023-07-06] MEDS: ARGININE/GLUTAMINE/CALCIUM BMB 1 EACH POWD.PACK GT SCH ×2 (09:07→17:52)
[2023-07-06] MEDS: FINASTERIDE (5 MG) 5 MG TABLET PO SCH (09:07)
[2023-07-06] MEDS: ALLOPURINOL 100 MG TABLET PO SCH ×2 (09:07→17:50)
[2023-07-06] MEDS: ASPIRIN 81 MG TAB.CHEW PO SCH (09:07)
[2023-07-06] MEDS: MULTIVITAMINS,THERAGRAN 1 UDTAB TABLET GT SCH (09:07)
[2023-07-06] MEDS: PROSOURCE / PROSTAT (PYXIS) 30 ML UDC GT SCH ×2 (09:07→17:52)
[2023-07-06] MEDS: CARVEDILOL 12.5 MG TABLET PO SCH ×2 (09:08→17:00)
[2023-07-06] MEDS: CHOLECALCIFEROL 1,000 UNIT TABLET (VIT D3) PO SCH (09:08)
[2023-07-06] MEDS ORDERED: DIVA500T2 PO (12:07)
[2023-07-06] MEDS ORDERED: MULT-24 GT (12:07)
[2023-07-06] MEDS ORDERED: ACET650S11 RC (12:07)
[2023-07-06] MEDS ORDERED: ALBU2.5V13 NEB (12:07)
[2023-07-06] MEDS ORDERED: NIFE10CA2 PO (12:07)
[2023-07-06] MEDS ORDERED: Zinc Sulfate GT (12:07)
[2023-07-06] MEDS ORDERED: ALLO100T25 PO (12:07)
[2023-07-06] MEDS ORDERED: CARV12.52 PO (12:07)
[2023-07-06] MEDS ORDERED: DOCU100C36 PO (12:07)
[2023-07-06] MEDS ORDERED: Prosource GT (12:07)
[2023-07-06] MEDS ORDERED: CHOL100040 PO (12:07)
[2023-07-06] MEDS ORDERED: ATOR40TA PO (12:07)
[2023-07-06] MEDS ORDERED: NUTR1PAC14 GT (12:07)
[2023-07-06] MEDS ORDERED: ASPI-1169 PO (12:07)
[2023-07-06] MEDS ORDERED: POLY17PO29 PO (12:07)
[2023-07-06] MEDS ORDERED: LACT-209 GT (12:07)
[2023-07-06] MEDS ORDERED: IPRA0.2S9 NEB (12:07)
[2023-07-06] MEDS ORDERED: ASCO500T21 GT (12:07)
[2023-07-06] MEDS ORDERED: PANT40SU2 GT (12:07)
[2023-07-06] MEDS ORDERED: FINA5TAB3 PO (12:07)
[2023-07-06] MEDS ORDERED: JEVITY 1.2 CAL 1,000 ML BOTTLE GT SCH (20:00)
[2023-07-06] MEDS: ATORVASTATIN 40 MG TABLET PO SCH (21:38)
[2023-07-07] VITALS (14 sets, daily range): BP systolic 135–186; BP diastolic 55–68; TEMP 97.2–97.7; O2SAT 96–100
[2023-07-07] MEDS: IPRATROPIUM NEB FS 0.5 MG/2.5 ML AMPUL.NEB NEB SCH ×4 (00:43→20:23)
[2023-07-07] MEDS: ALBUTEROL FS 2.5 MG/0.5 ML VIAL.NEB NEB SCH ×4 (00:43→20:23)
[2023-07-07] MEDS: NIFEdipine (10MG) 10 MG CAPSULE PO SCH ×3 (04:44→21:33)
[2023-07-07] MEDS: FINASTERIDE (5 MG) 5 MG TABLET PO SCH (08:52)
[2023-07-07] MEDS: PANTOPRAZOLE 40 MG/PACK PACK GT SCH ×2 (08:52→21:33)
[2023-07-07] MEDS: MULTIVITAMINS,THERAGRAN 1 UDTAB TABLET GT SCH (08:52)
[2023-07-07] MEDS: CHOLECALCIFEROL 1,000 UNIT TABLET (VIT D3) PO SCH (08:52)
[2023-07-07] MEDS: ASPIRIN 81 MG TAB.CHEW PO SCH (08:52)
[2023-07-07] MEDS: DOCUSATE SODIUM 100 MG CAPSULE PO SCH ×2 (08:52→16:14)
[2023-07-07] MEDS: ZINC SULFATE 220 MG CAPSULE GT SCH (08:52)
[2023-07-07] MEDS: ASCORBIC ACID 500 MG TABLET GT SCH (08:52)
[2023-07-07] MEDS: ALLOPURINOL 100 MG TABLET PO SCH ×2 (08:52→16:14)
[2023-07-07] MEDS: MEMANTINE HCL 5 MG TABLET PO SCH (08:52)
[2023-07-07] MEDS: CARVEDILOL 12.5 MG TABLET PO SCH ×2 (08:53→16:15)
[2023-07-07] MEDS: PROSOURCE / PROSTAT (PYXIS) 30 ML UDC GT SCH ×2 (08:53→16:14)
[2023-07-07] MEDS: DIVALPROEX SODIUM 500 MG TABLET.DR PO SCH (08:53)
[2023-07-07] MEDS: ARGININE/GLUTAMINE/CALCIUM BMB 1 EACH POWD.PACK GT SCH ×2 (08:54→16:14)
[2023-07-07] MEDS: ATORVASTATIN 40 MG TABLET PO SCH (21:33)
[2023-07-08] VITALS (16 sets, daily range): BP systolic 133–180; BP diastolic 55–100; TEMP 97.5–98.5; O2SAT 96–100
[2023-07-08] MEDS: IPRATROPIUM NEB FS 0.5 MG/2.5 ML AMPUL.NEB NEB SCH ×4 (01:55→20:12)
[2023-07-08] MEDS: ALBUTEROL FS 2.5 MG/0.5 ML VIAL.NEB NEB SCH ×4 (01:55→20:12)
[2023-07-08] MEDS: NIFEdipine (10MG) 10 MG CAPSULE PO SCH ×3 (04:27→21:17)
[2023-07-08 06:24] LABS: BASOPHILS % (AUTO) 0.4 % (0.0-2.0); EOSINOPHILS # (AUTO) 0.2 K/uL (0.0-0.7); EOSINOPHILS % (AUTO) 2.7 % (0.0-6.0); HEMATOCRIT 25 % (39-51); HEMOGLOBIN 8.4 g/dL (13.5-17.5); LYMPHOCYTES # (AUTO) 0.8 K/uL (0.8-4.8); LYMPHOCYTES % (AUTO) 9.4 % (20.0-44.0); MEAN CORPUSCULAR HEMOGLOBIN 31 PG (26.0-33.0); MEAN CORPUSCULAR HGB CONC 34 g/dl (31.0-36.0); MEAN CORPUSCULAR VOLUME 91 fL (80-96); MONOCYTES # (AUTO) 0.4 K/uL (0.1-1.30); MONOCYTES % (AUTO) 5.1 % (2.0-12.0); NEUTROPHILS # (AUTO) 6.7 K/uL (1.8-8.9); NEUTROPHILS % (AUTO) 82.4 % (43.0-81.0); PLATELET COUNT (AUTO) 329 K/uL (150-450); RED BLOOD CELL COUNT(AUTO) 2.71 MIL/uL (4.5-6.0); RED CELL DISTRIBUTION WIDTH 18.3 % (11.5-15.0); WHITE BLOOD COUNT (AUTO) 8.1 K/uL (4.3-11.0)
[2023-07-08 07:39] LABS: ALANINE AMINOTRANSFERASE 38 U/L (12-78); ALBUMIN 1.7 g/dL (3.4-5.0); ALKALINE PHOSPHATASE 72 U/L (46-116); ASPARTATE AMINOTRANSFERASE 51 U/L (15-37); BILIRUBIN,TOTAL 0.3 mg/dL (0.2-1.0); CALCIUM, SERUM 8.2 mg/dL (8.5-10.1); CARBON DIOXIDE 29 mmol/L (21-32); CHLORIDE 105 mmol/L (98-107); CREATININE 0.7 mg/dL (0.6-1.3); GLUCOSE 116 mg/dL (74-106); MAGNESIUM 1.8 mg/dL (1.8-2.4); POTASSIUM 3.8 mmol/L (3.5-5.1); SODIUM SERUM 137 mmol/L (136-145); TOTAL PROTEIN, SERUM 5.1 g/dL (6.4-8.2); UREA NITROGEN, BLOOD 32 mg/dL (7-18)
[2023-07-08] MEDS: ASPIRIN 81 MG TAB.CHEW PO SCH (08:26)
[2023-07-08] MEDS: ALLOPURINOL 100 MG TABLET PO SCH (08:26)
[2023-07-08] MEDS: MEMANTINE HCL 5 MG TABLET PO SCH (08:26)
[2023-07-08] MEDS: ASCORBIC ACID 500 MG TABLET GT SCH (08:26)
[2023-07-08] MEDS: CHOLECALCIFEROL 1,000 UNIT TABLET (VIT D3) PO SCH (08:26)
[2023-07-08] MEDS: MULTIVITAMINS,THERAGRAN 1 UDTAB TABLET GT SCH (08:26)
[2023-07-08] MEDS: DIVALPROEX SODIUM 500 MG TABLET.DR PO SCH (08:26)
[2023-07-08] MEDS: ZINC SULFATE 220 MG CAPSULE GT SCH (08:26)
[2023-07-08] MEDS: FINASTERIDE (5 MG) 5 MG TABLET PO SCH (08:26)
[2023-07-08] MEDS: PANTOPRAZOLE 40 MG/PACK PACK GT SCH ×2 (08:26→21:17)
[2023-07-08] MEDS: DOCUSATE SODIUM 100 MG CAPSULE PO SCH (08:26)
[2023-07-08] MEDS: CARVEDILOL 12.5 MG TABLET PO SCH (08:31)
[2023-07-08] MEDS: ARGININE/GLUTAMINE/CALCIUM BMB 1 EACH POWD.PACK GT SCH ×2 (08:31→17:10)
[2023-07-08] MEDS: PROSOURCE / PROSTAT (PYXIS) 30 ML UDC GT SCH ×2 (08:31→17:08)
[2023-07-08] MEDS ORDERED: JEVITY 1.2 CAL 1,000 ML BOTTLE GT PRN (10:30)
[2023-07-08] MEDS ORDERED: ATORVASTATIN 40 MG TABLET GT SCH (11:13)
[2023-07-08] MEDS ORDERED: FINASTERIDE (5 MG) 5 MG TABLET GT SCH (11:13)
[2023-07-08] MEDS ORDERED: POLYETHYLENE GLYCOL 3350 17 GM POWD.PACK GT PRN (11:14)
[2023-07-08] MEDS ORDERED: CHOLECALCIFEROL 1,000 UNIT TABLET (VIT D3) GT SCH (11:14)
[2023-07-08] MEDS ORDERED: ASPIRIN 81 MG TAB.CHEW GT SCH (11:14)
[2023-07-08] MEDS ORDERED: MEMANTINE HCL 5 MG TABLET GT SCH (11:14)
[2023-07-08] MEDS: hydrALAZINE HCL IV 20 MG VIAL IV PRN (15:31)
[2023-07-08] MEDS: DOCUSATE SODIUM LIQ 100 MG/10 ML UDC GT SCH (17:00)
[2023-07-08] MEDS: ALLOPURINOL 100 MG TABLET GT SCH (17:08)
[2023-07-08] MEDS: CARVEDILOL 12.5 MG TABLET GT SCH (17:08)
[2023-07-09] VITALS (12 sets, daily range): BP systolic 143–166; BP diastolic 56–73; TEMP 97.4–98.7; O2SAT 95–100
[2023-07-09] MEDS: IPRATROPIUM NEB FS 0.5 MG/2.5 ML AMPUL.NEB NEB SCH ×3 (01:45→13:21)
[2023-07-09] MEDS: ALBUTEROL FS 2.5 MG/0.5 ML VIAL.NEB NEB SCH ×3 (01:45→13:21)
[2023-07-09] MEDS: NIFEdipine (10MG) 10 MG CAPSULE PO SCH ×2 (04:32→12:36)
[2023-07-09] MEDS: CARVEDILOL 12.5 MG TABLET GT SCH ×2 (09:00→17:00)
[2023-07-09] MEDS: ASCORBIC ACID 500 MG TABLET GT SCH (09:14)
[2023-07-09] MEDS: ZINC SULFATE 220 MG CAPSULE GT SCH (09:14)
[2023-07-09] MEDS: DOCUSATE SODIUM LIQ 100 MG/10 ML UDC GT SCH ×2 (09:14→17:00)
[2023-07-09] MEDS: MULTIVITAMINS,THERAGRAN 1 UDTAB TABLET GT SCH (09:14)
[2023-07-09] MEDS: DIVALPROEX SODIUM 500 MG TABLET.DR PO SCH (09:14)
[2023-07-09] MEDS: ALLOPURINOL 100 MG TABLET GT SCH ×2 (09:15→17:55)
[2023-07-09] MEDS: PROSOURCE / PROSTAT (PYXIS) 30 ML UDC GT SCH ×2 (09:17→17:55)
[2023-07-09] MEDS: ARGININE/GLUTAMINE/CALCIUM BMB 1 EACH POWD.PACK GT SCH ×2 (09:17→17:55)
[2023-07-09] MEDS: PANTOPRAZOLE 40 MG/PACK PACK GT SCH (09:25)
[2023-07-09] MEDS ORDERED: ALBUMIN 5% 12.5 GM/250 ML BOTTLE IV ONE (11:00)
[2023-07-09] MEDS ORDERED: ALBUMIN 5% 12.5 GM in PREMIX 1 EA IV ONE (11:30)
== END 2023-07-09 18:40 | disposition home health service (06) | DRG 871 ==
LOC: ER 17:00 → TELE1 20:18 → TELE-TD 21:00 → TELE1 06-28 08:44 → MEDSG1 07-09 12:26
PROVIDERS: ADMIT Nurse Practitioner Acute Care; ATTEND Nurse Practitioner Acute Care
PROC: 05HB33Z Insertion of Infusion Device into Right Basilic Vein, Percutaneous Approach (ICD-10-PCS; principal; 2023-06-27)
PROC: 0DH63UZ Insertion of Feeding Device into Stomach, Percutaneous Approach (ICD-10-PCS; 2023-06-30)
DX: A41.89 Other specified sepsis (principal); G92.8 Other toxic encephalopathy; J69.0 Pneumonitis due to inhalation of food and vomit; N17.0 Acute kidney failure with tubular necrosis; J15.9 Unspecified bacterial pneumonia; J96.01 Acute respiratory failure with hypoxia; D68.59 Other primary thrombophilia; E44.0 Moderate protein-calorie malnutrition; F02.83 Dementia in other diseases classified elsewhere, unspecified severity, with mood disturbance; N39.0 Urinary tract infection, site not specified; M48.55XA Collapsed vertebra, not elsewhere classified, thoracolumbar region, initial encounter for fracture; E87.1 Hypo-osmolality and hyponatremia; J90 Pleural effusion, not elsewhere classified; J98.11 Atelectasis; Z20.822 Contact with and (suspected) exposure to COVID-19; K29.70 Gastritis, unspecified, without bleeding; I25.10 Atherosclerotic heart disease of native coronary artery without angina pectoris; E78.5 Hyperlipidemia, unspecified; I25.2 Old myocardial infarction; Z95.1 Presence of aortocoronary bypass graft; Z95.5 Presence of coronary angioplasty implant and graft; F32.A Depression, unspecified; G30.9 Alzheimer's disease, unspecified; N40.0 Benign prostatic hyperplasia without lower urinary tract symptoms; K58.9 Irritable bowel syndrome, unspecified; D63.8 Anemia in other chronic diseases classified elsewhere; Z88.2 Allergy status to sulfonamides; Z88.0 Allergy status to penicillin; Z79.82 Long term (current) use of aspirin; Z74.01 Bed confinement status; Z79.899 Other long term (current) drug therapy; B96.89 Other specified bacterial agents as the cause of diseases classified elsewhere; R62.7 Adult failure to thrive; Z74.09 Other reduced mobility; R13.10 Dysphagia, unspecified; L89.156 Pressure-induced deep tissue damage of sacral region; K56.41 Fecal impaction; L98.429 Non-pressure chronic ulcer of back with unspecified severity; E86.0 Dehydration; N20.0 Calculus of kidney; N28.1 Cyst of kidney, acquired; D69.6 Thrombocytopenia, unspecified; F09 Unspecified mental disorder due to known physiological condition; E88.9 Metabolic disorder, unspecified; J32.9 Chronic sinusitis, unspecified
CPT/HCPCS: 36415; 36600; 43246; 70450-TC; 71045-TC; 76770-TC; 80048-TC; 80053-TC; 80061-TC; 80076-TC; 80202-TC; 81001; 82607-TC; 82728-TC; 82962-TC; 83540-TC; 83605-TC; 83735-TC; 84100-TC; 84300-TC; 84443-TC; 84484-TC; 85025-TC; 85730-TC; 86850-TC; 87040-TC; 87086-TC; 92526; 92611-TC; 93971-TC; 94799-TC; A4216; A4223; A6403; C9113; C9803; G0378; J0360; J0692; J2704; J3370; J3475; J3490; J7030; J7040; J7050; J7060; J7120; P9045; P9047